=== PATIENT | female | born 1995 | race Caucasian/White ===

== ENCOUNTER 2021-02-28 06:31 | Emergency (ER) | payer OTHER ==
[~2021-02-28] VITALS: Ht 162.6 cm; Wt 65.6 kg
--- NOTE | 2021-02-28 06:41 | NUR ---
C-COLLAR APPLIED IN TRIAGE.
--- NOTE | 2021-02-28 06:47 | NUR ---
PT STATES THAT SHE GOT UP TO GO TO THE BATHROOM IN THE DARK, CAME BACK AND DECIDED TO DIVE ON TO HER BED BUT ENDED UP MISSING THE BED AND LANDED ON HER BACK AFTER HITTING HER HEAD, PT STATED SHE DID BECOME NAUSEOUS AND DID THROW UP. PT STATES SHE DOES HAVE A SORE NECK AND A LITTLE HEAD PAIN MAYBE AT A 1 OUT OF 10
--- NOTE | 2021-02-28 07:05 | NUR ---
PT REC'VD DISCHARGE INSTRUCTIONS AND EDUCATION. PT HAD NO FURTHER QUESTIONS. PT AMBULAED TO DC AREA, STADY GAIT.
[2021-02-28 07:09] VITALS: BP 104/63
== END 2021-02-28 07:20 | disposition home or self-care (01) ==
LOC: ED 07:00
DX: S16.1XXA Strain of muscle, fascia and tendon at neck level, initial encounter (principal); S09.90XA Unspecified injury of head, initial encounter; W18.30XA Fall on same level, unspecified, initial encounter; Y93.89 Activity, other specified; Y92.009 Unspecified place in unspecified non-institutional (private) residence as the place of occurrence of the external cause; Y99.8 Other external cause status
CPT/HCPCS: 99283